=== PATIENT | female | born 2000 | race American Indian/Alaskan Native ===

== ENCOUNTER 2020-01-03 15:23 | Emergency (ER) | payer SELFPAY ==
[2020-01-03 15:30] VITALS: BP 141/93
--- NOTE | 2020-01-03 17:33 | Emergency Department Report ---
Chief Complaint: Sore Throat Stated Complaint: SORE THROAT Time Seen by Provider: 01/03/20 17:21 - HPI History of Present Illness: Patient is a 19-year-old female who presents to ED with complaining of throat pain 2 days. Patient describes pain as throbbing in nature, 8 out of 10 intensity, nonradiating, localized to his throat. Admits pain with swallowing and eating. Patient admits no appetite due to throat pain. Patient admits fever f yesterday she has been taking Tylenol but not at the moment. Patient denies nausea/vomiting/abdominal pain/shortness of breath/chest pain/headache. - ROS Review of Systems: As noted in HPI - Exam Vital Signs: Vital Signs 01/03/20 15:29 Temperature 99.3 F Pulse Rate 88 Respiratory 18 Rate Blood Pressure 141/93 O2 Sat by Pulse 99 Oximetry Physical Exam: GENERAL: Alert and oriented x3, no apparent distress, Normal Gait, atraumatic. HEAD: Head is normocephalic and a-traumatic. EYES: Extra ocular muscles are intact. Pupils are equal, round, and reactive to light and accommodation. EARS: symetrical, atraumatic, non tender, ear canal clear and moderate cerumen, tympanic membrance non inflamed. gross auditory nml bilaterally. NOSE: Nose symetrical, Nontender,Nares appeared normal. MOUTH:Mouth is well hydrated and without lesions. Tonsils nonerythematous or swollen, Uvula midline, Tongue not elevated. Mucous membranes are moist. Posterior pharynx clear, no exudate or lesions. Patent airways. NECK: Supple. Non edematous, No carotid bruits. No lymphadenopathy or thyromegaly. No C-spine tenderness SKIN: Warm and dry, No lesions, No ulceration or induration present. MSE screening note: Focused history and physical exam performed. Due to findings the following was ordered: ED Medical Decision Making - Medical Decision Making 23-year-old male presents with pharyngitis. ED course: Vital signs stable patient is in no acute or respiratory distress. Discussed findings with patient about the positive strep. Discussed treatment in ED with patient Discussed the patient that pharyngitis is contagious and to limit sharing spoons and such. Patient to be sent home on antibiotics and Magic mouthwash Discussed with patient follow-up with primary care physician. Patient verbally states he understands and will comply to follow-up. ED Disposition for MSE Clinical Impression: Pharyngitis Disposition: DC-01 TO HOME OR SELFCARE Is pt being admited?: No Does the pt Need Aspirin: No Condition: Stable Instructions: Pharyngitis (ED) Additional Instructions: Make sure to follow up with the primary care physician as discussed. Take all your medications as you've been prescribed. If you have any worsening symptoms or develop new symptoms please return to ED immediately. Prescriptions: Nystas/Diphen/Xyl Visc/Mylanta [Magic Mouthwash] 15 ml MM Q6H PRN #120 ml PRN Reason: Sore Throat Amoxicillin [Trimox CAP] 500 mg PO Q8H #21 capsule Referrals: PRIMARY CARE, [Primary Care Provider] - 3-5 Days [facility] [Outside] - 3-5 Days Forms: Work/School Release Form(ED) Time of Disposition: 17:34
== END 2020-01-03 18:02 | disposition home or self-care (01) ==
LOC: ED 15:23
DX: J02.9 Acute pharyngitis, unspecified (principal)
CPT/HCPCS: 99281